=== PATIENT | female | born 1970 | race American Indian/Alaskan Native ===

== ENCOUNTER 2017-07-23 20:17 | Emergency (ER) | payer OTHER ==
[2017-07-23 20:39] VITALS: BP 154/88
[2017-07-23] MEDS ORDERED: REGLAN PO ONE (21:35)
[2017-07-23] MEDS ORDERED: BENADRYL PO ONE (21:35)
[2017-07-23] MEDS ORDERED: TORADOL IM ONE (21:35)
--- NOTE | 2017-07-23 21:43 | Emergency Department Report ---
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 dx with cervicle strain and closed head injuryh pt no complains of 5/10 heache with intermittent blurred vision bilat pt states "I can believe they still have me working 10-12 hours shifts, pt has not missed a work day since incident completes all work duties without difficulty, states I have seen the workman's comp doctor 3 times but still can' t get off work light duty. pt is currently taking ibuprofen prn pain but is afraid to take a lot of medication because she "just doesn't do that". pt is exacerbated by movement bending twisting repeated sitting and standing at work Onset/Timin -: week(s) Location: head Radiation: neck Severity scale (0 -10): 5 Quality: aching, sharp Consistency: intermittent Worsens with: movement, other (bending twisting head position) Associated Symptoms: headaches. denies: confusion, chest pain, cough, diaphoresis, fever/chills, loss of appetite, malaise, nausea/vomiting, rash, seizure, shortness of breath, syncope, weakness Treatments Prior to Arrival: none - Related Data Previous Rx's Medication Instructions Recorded Last Taken Type Cyclobenzaprine [Flexeril] 10 mg PO TID PRN #15 tablet 07/09/16 Unknown Rx Ibuprofen [Motrin] 800 mg PO Q8HR PRN #20 tablet 07/09/16 Unknown Rx Cyclobenzaprine [Flexeril] 10 mg PO TID PRN #30 tablet 07/23/17 Unknown Rx Naproxen 500 mg PO BID PRN #30 tablet 07/23/17 Unknown Rx Allergies Allergy/AdvReac Type Severity Reaction Status Date / Time No Known Allergies Allergy Verified 07/23/17 20:35 ED Review of Systems ROS: Stated complaint: HEAD INJURY Other details as noted in HPI Constitutional: denies: chills, fever Eyes: as per HPI, other (intermittent blurred vision with headache) ENT: denies: ear pain, throat pain Respiratory: denies: cough, shortness of breath, wheezing Cardiovascular: denies: chest pain, palpitations Endocrine: no symptoms reported Gastrointestinal: denies: abdominal pain, nausea, diarrhea Genitourinary: denies: urgency, dysuria, discharge Musculoskeletal: other (neck pain ). denies: back pain, joint swelling, arthralgia Skin: denies: rash, lesions Neurological: headache. denies: weakness, numbness, paresthesias, confusion, abnormal gait, vertigo Psychiatric: denies: anxiety, depression Hematological/Lymphatic: denies: easy bleeding, easy bruising ED Past Medical Hx - Past Medical History Hx Sickle Cell Disease: Yes (TRAIT ONLY) - Social History Smoking Status: Never Smoker Substance Use Type: None - Medications Home Medications: Home Medications Medication Instructions Recorded Confirmed Last Taken Type Cyclobenzaprine [Flexeril] 10 mg PO TID PRN #15 tablet 07/09/16 Unknown Rx Ibuprofen [Motrin] 800 mg PO Q8HR PRN #20 tablet 07/09/16 Unknown Rx Cyclobenzaprine [Flexeril] 10 mg PO TID PRN #30 tablet 07/23/17 Unknown Rx Naproxen 500 mg PO BID PRN #30 tablet 07/23/17 Unknown Rx ED Physical Exam - General Limitations: No Limitations General appearance: alert, in no apparent distress - Head Head exam: Present: atraumatic, normocephalic, normal inspection - Eye Eye exam: Present: normal appearance, PERRL, EOMI Pupils: Present: normal accommodation - ENT ENT exam: Present: normal exam, mucous membranes moist, TM's normal bilaterally , normal external ear exam - Expanded ENT Exam Expanded Ear exam: Present: normal external inspection, other (no blood no swelling no pain ) Mouth exam: Present: other (no blood no swelling ) Throat exam: Positive: normal inspection, other (no blood no exudate no swelling no lesion no stridor ) - Neck Neck exam: Present: normal inspection (no swelling no ecchymosis ), tenderness ( bilat lateral neck muscle pain to deep palpation no weakness no numbness no tingling ), full ROM. Absent: lymphadenopathy, thyromegaly - Respiratory Respiratory exam: Present: normal lung sounds bilaterally. Absent: respiratory distress, wheezes, rhonchi, stridor, chest wall tenderness - Cardiovascular Cardiovascular Exam: Present: regular rate, normal rhythm, normal heart sounds. Absent: systolic murmur, diastolic murmur, rubs, gallop - GI/Abdominal GI/Abdominal exam: Present: soft, normal bowel sounds - Rectal Rectal exam: Present: deferred - Extremities Exam Extremities exam: Present: normal inspection, full ROM, normal capillary refill. Absent: tenderness, pedal edema, joint swelling, calf tenderness - Back Exam Back exam: Present: normal inspection, full ROM. Absent: tenderness, CVA tenderness (R), CVA tenderness (L), muscle spasm, paraspinal tenderness, vertebral tenderness, rash noted - Neurological Exam Neurological exam: Present: alert, oriented X3, CN II-XII intact, normal gait, reflexes normal. Absent: motor sensory deficit - Expanded Neurological Exam Expanded Patient oriented to: Present: person, place, time Speech: Present: fluid speech Cranial nerves: EOM's Intact: Normal, Gag Reflex: Normal, Tongue Deviation: Normal, Nystagmus: Normal, Facial Sensation: Normal Cerebellar function: Finger to Nose: Normal, Heel to Ortega: Normal, Romberg: Normal Upper motor neuron: David Neglect: Normal, Pronator Drift: Normal, Babinski Sign : Normal, Sensory Extinction: Normal Sensory exam: Upper Extremity Light Touch: Normal, Upper Extremity Pin Prick: Normal, Upper Extremity Temperature: Normal, UE 2 Point Discrimination: Normal, Lower Extremity Light Touch: Normal, Lower Extremity Pin Prick: Normal, Lower Extremity Temperature: Normal, LE 2 Point Discrimination: Normal Motor strength exam: RUE: 5, LUE: 5, RLE: 5, LLE: 5 DTR: bicep (R): 2+, bicep (L): 2+, tricep (R): 2+, tricep (L): 2+, knee (R): 2+ , knee (L): 2+, ankle (R): 2+, ankle (L): 2+ Best Eye Response (Mckinney): (4) open spontaneously Best Motor Response (Mckinney): (6) obeys commands Best Verbal Response (Indira): (5) oriented Indira Total: 15 - Psychiatric Psychiatric exam: Present: normal affect, normal mood - Skin Skin exam: Present: warm, dry, intact, normal color. 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 pt is currently taking ibuprofen prn pain but is afraid to take a lot of medication because she "just doesn't do that". pt is exacerbated by movement bending twisting repeated sitting and standing at work : exam appears well nontoxic head is midline no lacerations no swelling no crepitus no stepoff, neck supple appear atraumatic ent: normal no swelling no blood no drainage eyes: perrla, eomi, conjunctivae clear bilat neck: no posterior vertebral point tenderness no swelling ecchymosis no swelling no rom intact chin to chest bilat shoulder and full neck extension with 2/10 pain to movement, pt denies dizziness no light headedness no n/v pt is ambulatory to baseline rhomberg negative, headache is no 2/10 after medication given in ed, plan: naproxen po bid, flexeril, moist heat for neck, follow up with [facility] doctor tomorrow as scheduled, pt verbalized agreement and understanding with discharge plan. Critical care attestation.: If time is entered above; I have spent that time in minutes in the direct care of this critically ill patient, excluding procedure time. ED Disposition Clinical Impression: Headache Qualifiers: Headache type: unspecified Headache chronicity pattern: unspecified pattern Intractability: not intractable Qualified Code(s): R51 - Headache Neck muscle strain Qualifiers: Encounter type: initial encounter Qualified Code(s): S16.1XXA - Strain of muscle, fascia and tendon at neck level, initial encounter Disposition: TO HOME OR SELFCARE Is pt being admited?: No Does the pt Need Aspirin: No Condition: Good Instructions: Cervical Spine Strain (ED) Additional Instructions: follow up with your workmans comp doctor tomorrow Prescriptions: Cyclobenzaprine [Flexeril] 10 mg PO TID PRN #30 tablet PRN Reason: Muscle Spasm Naproxen 500 mg PO BID PRN #30 tablet PRN Reason: Pain Referrals: PRIMARY CARE, [Primary Care Provider] - 3-5 Days Forms: Work/School Release Form(ED) Time of Disposition: 22:08
== END 2017-07-23 22:25 | disposition home or self-care (01) ==
LOC: ED 20:17
DX: S16.1XXA Strain of muscle, fascia and tendon at neck level, initial encounter (principal); R51 Headache; X58.XXXA Exposure to other specified factors, initial encounter; Y93.89 Activity, other specified; Y92.89 Other specified places as the place of occurrence of the external cause; Y99.8 Other external cause status
CPT/HCPCS: 96372; 99282; J1885

== ENCOUNTER 2020-01-01 17:40 | Emergency (ER) | payer OTHER ==
--- NOTE | 2020-01-01 18:46 | XRay Report ---
CHEST PA AND LATERAL VIEWS INDICATION: SOB, cough. COMPARISON: None. FINDINGS: Support devices: None. Heart: Within normal limits. Lungs/Pleura: Mild increased reticular opacities are noted bilaterally, greatest in the lower lungs. IMPRESSION: 1. Predominantly peribronchovascular reticular opacities in both lungs are nonspecific but could be s een in the setting of lower airways disease. Signer Name: Oli Dietrich MD Signed: 01/01/2020 6:41 PM Workstation Name: [id number]
[2020-01-01] MEDS ORDERED: SODIUM CHLORIDE 0.9% 1000 ML 1,000 ML IV ONE (19:52)
[2020-01-01] MEDS ORDERED: methylPREDNISolone Sod Succinate 125 MG/2 ML INJ IV ONE (19:53)
[2020-01-01] MEDS ORDERED: ACETAMINOPHEN 500 MG TAB PO ONE (19:54)
[2020-01-01 20:46] LABS: Basophils % (Auto) 0.7 % (0.0-1.8); Hematocrit 38.4 % (30.3-42.9); Hemoglobin 12.5 gm/dl (10.1-14.3); Lymphocytes # (Auto) 1.3 K/mm3 (1.2-5.4); Lymphocytes % (Auto) 30.4 % (13.4-35.0); Mean Corpuscular HGB Conc 33 % (30-34); Mean Corpuscular Volume 88 fl (79-97); Monocytes # (Auto) 0.5 K/mm3 (0.0-0.8); Monocytes % (Auto) 10.9 % (0.0-7.3); Platelet Count 166 K/mm3 (140-440); Red Blood Count 4.36 M/mm3 (3.65-5.03); Red Cell Distribution Width 13.3 % (13.2-15.2)
[2020-01-01 21:06] LABS: C-Reactive Protein 5.4 mg/dL (0.00-1.30)
[2020-01-01] MEDS ORDERED: AZITHROMYCIN 250 MG TAB PO ONE (21:26)
[2020-01-01] MEDS ORDERED: cefTRIAXone/NS 1 GM/50 ML 1 GM/50 ML BAG IV ONE (21:26)
[2020-01-01 22:00] LABS: Alanine Aminotransferase 58 units/L (7-56); Albumin 3.5 g/dL (3.9-5); BUN/Creatinine Ratio 11; Blood Urea Nitrogen 21 mg/dL (7-17); Calcium 8.8 mg/dL (8.4-10.2); Hemolysis Index 20
[2020-01-01] MEDS ORDERED: ACETAMINOPHEN 325 MG TAB ONE (22:19)
[2020-01-01] MEDS ORDERED: methylPREDNISolone Sod Succinate 125 MG/2 ML INJ ONE (22:20)
[2020-01-01] MEDS ORDERED: LIDOCAINE-MPF (1%) 10 MG/1 ML VIAL 5 ML ONE (22:20)
--- NOTE | 2020-01-02 03:33 | Emergency Department Report ---
- General Chief Complaint: Upper Respiratory Infection Stated Complaint: COUGH/FEVER/BODY ACHE Source: patient Mode of arrival: Ambulatory Limitations: No Limitations - History of Present Illness Initial Comments: Patient is a 49-year-old -[place] female with no past medical history and who does not smoke cigarettes or drink alcohol or use illegal drugs presents to the ED with complaint of acute onset persistent severe diffuse body aches and pains, nasal and sinus congestion, frontal sinus pressure and headache, persistent dry cough and subjective fever for the last 1 week. Patient states that her symptoms got worse in the last 2 days. Patient states that her has had similar symptoms. Patient denies any travel recently. Patient denies dizziness, syncope, chest pain, shortness of breath, nausea, vomiting, diarrhea, dysuria, urinary frequency and urgency, abdominal pain, sore throat, change in vision, palpitations or low back pain. Patient states that she has been taking [id number] medications with no relief. MD Complaint: fever, cough, rhinorrhea, nasal congestion, sinus pain, other -: Sudden, week(s) (1) Severity: severe Severity scale (0 -10): 7 Quality: sharp, aching Consistency: constant Improves With: nothing Worsens With: nothing Context: sick contacts Associated Symptoms: denies other symptoms, fever, chills, myalgias, headache, rhinorrhea, nasal congestion, cough. denies: sore throat, chest pain, shortness of breath, abdominal pain, nausea, vomiting, diarrhea, dysuria, rash, right sweats, weight loss Treatments Prior to Arrival: Acetaminophen - Related Data Previous Rx's Medication Instructions Recorded Last Taken Type Cyclobenzaprine [Flexeril] 10 mg PO TID PRN #15 tablet 07/09/16 Unknown Rx Ibuprofen [Motrin] 800 mg PO Q8HR PRN #20 tablet 07/09/16 Unknown Rx Cyclobenzaprine [Flexeril] 10 mg PO TID PRN #30 tablet 07/23/17 Unknown Rx Naproxen 500 mg PO BID PRN #30 tablet 07/23/17 Unknown Rx Acetaminophen [Tylenol] 1,000 mg PO Q6HR PRN #30 tablet 01/02/20 Unknown Rx Albuterol Sulfate [Proventil Hfa] 1 - 2 puff IH Q6H PRN #1 inh 01/02/20 Unknown Rx Azithromycin [Zithromax Z-ANDRES] 250 mg PO DAILY #6 tablet 01/02/20 Unknown Rx Benzonatate [Tessalon Perles] 100 mg PO Q8HR #30 capsule 01/02/20 Unknown Rx Allergies Allergy/AdvReac Type Severity Reaction Status Date / Time No Known Allergies Allergy Verified 07/23/17 20:35 ED Review of Systems ROS: Stated complaint: COUGH/FEVER/BODY ACHE Other details as noted in HPI Constitutional: see HPI, fever, malaise Eyes: denies: eye pain, eye discharge, vision change ENT: congestion. denies: ear pain, throat pain Respiratory: cough. denies: shortness of breath, wheezing Cardiovascular: denies: chest pain, palpitations, edema Endocrine: no symptoms reported Gastrointestinal: denies: abdominal pain, nausea, diarrhea Genitourinary: denies: urgency, dysuria, discharge Musculoskeletal: arthralgia, myalgia. denies: joint swelling Skin: denies: rash, lesions Neurological: denies: headache, weakness, paresthesias Psychiatric: denies: anxiety, depression Hematological/Lymphatic: denies: easy bleeding, easy bruising ED Past Medical Hx - Past Medical History Previous Medical History?: No (Body aches) Hx Sickle Cell Disease: Yes (TRAIT ONLY) - Surgical History Past Surgical History?: No - Social History Smoking Status: Never Smoker - Medications Home Medications: Home Medications Medication Instructions Recorded Confirmed Last Taken Type Cyclobenzaprine [Flexeril] 10 mg PO TID PRN #15 tablet 07/09/16 Unknown Rx Ibuprofen [Motrin] 800 mg PO Q8HR PRN #20 tablet 07/09/16 Unknown Rx Cyclobenzaprine [Flexeril] 10 mg PO TID PRN #30 tablet 07/23/17 Unknown Rx Naproxen 500 mg PO BID PRN #30 tablet 07/23/17 Unknown Rx Acetaminophen [Tylenol] 1,000 mg PO Q6HR PRN #30 tablet 01/02/20 Unknown Rx Albuterol Sulfate [Proventil Hfa] 1 - 2 puff IH Q6H PRN #1 inh 01/02/20 Unknown Rx Azithromycin [Zithromax Z-ANDRES] 250 mg PO DAILY #6 tablet 01/02/20 Unknown Rx Benzonatate [Tessalon Perles] 100 mg PO Q8HR #30 capsule 01/02/20 Unknown Rx ED Physical Exam - General Limitations: No Limitations General appearance: alert, in no apparent distress - Head Head exam: Present: atraumatic, normocephalic, normal inspection - Eye Eye exam: Present: normal appearance, PERRL, EOMI Pupils: Present: normal accommodation - ENT ENT exam: Present: normal orophraynx, mucous membranes moist, TM's normal bilaterally, normal external ear exam, other (Grossly congested nasal passages) - Neck Neck exam: Present: normal inspection, full ROM. Absent: tenderness, meningismus, lymphadenopathy, thyromegaly - Respiratory Respiratory exam: Present: normal lung sounds bilaterally. Absent: respiratory distress, wheezes, rales, chest wall tenderness, accessory muscle use, decreased breath sounds, prolonged expiratory - Cardiovascular Cardiovascular Exam: Present: normal rhythm, tachycardia, normal heart sounds. Absent: systolic murmur, diastolic murmur, rubs, gallop - GI/Abdominal GI/Abdominal exam: Present: soft, normal bowel sounds. Absent: tenderness, guarding, rebound, hyperactive bowel sounds - Extremities Exam Extremities exam: Present: normal inspection, full ROM, normal capillary refill - Back Exam Back exam: Present: normal inspection, full ROM. Absent: tenderness, CVA tenderness (R), CVA tenderness (L), muscle spasm, paraspinal tenderness, vertebral tenderness - Neurological Exam Neurological exam: Present: alert, oriented X3, CN II-XII intact, normal gait, reflexes normal - Psychiatric Psychiatric exam: Present: normal affect, normal mood - Skin Skin exam: Present: warm, dry, intact, normal color. Absent: rash ED Course Vital Signs 01/01/20 01/01/20 17:53 22:47 Temperature 98.4 F Pulse Rate 115 H Respiratory 16 18 Rate Blood Pressure 107/71 [Right] O2 Sat by Pulse 98 Oximetry ED Medical Decision Making - Lab Data Result diagrams: 01/01/20 20:15 01/01/20 20:15 - Radiology Data Radiology results: report reviewed, image reviewed Findings [facility] [address] [place] [address] XRay Report Signed Patient: ZAK TUBBS MR#: [id number] : 1970 Acct:[id number] Age/Sex: 49 / F ADM Date: 01/01/20 Loc: ED Attending Dr: Ordering Physician: ED DOCMD Date of Service: 01/01/20 Procedure(s): XR chest routine 2V Accession Number(s): [id number] cc: NIKI JORGE MD Fluoro Time In Minutes: CHEST PA AND LATERAL VIEWS INDICATION: SOB, cough. COMPARISON: None. FINDINGS: Support devices: None. Heart: Within normal limits. Lungs/Pleura: Mild increased reticular opacities are noted bilaterally, greatest in the lower lungs. IMPRESSION: 1. Predominantly peribronchovascular reticular opacities in both lungs are nonspecific but could be seen in the setting of lower airways disease. Signer Name: Oli Dietrich MD Signed: 01/01/2020 6:41 PM Workstation Name: [id number] Transcribed By: ROSALIND Dictated By: Oli Dietrich MD Electronically Authenticated By: Oli Dietrich MD Signed Date/Time: 01/01/201840 DD/ 39 TD/TT: - Medical Decision Making This is a 49-year-old female who presented to the ED with complaint of acute onset persistent nasal and sinus congestion, frontal sinus pressure, persistent dry cough with wheezing, diffuse body aches and pains and subjective fever for 1 week. In the ED, patient is alert and oriented x3 and is not in distress, afebrile but tachycardic in triage. Patient was treated for pain in the ED and lab test results were reviewed and are consistent with a viral syndrome suspected to be Covid-19 viral pandemic strain. Chest x-ray showed predominantly peribronchovascular reticular opacities in both lungs are nonspecific but could be seen in the setting of lower airways disease. Therefore based on the patient's history, physical exam findings, lab test results and chest x-ray report, patient was treated in the ED empirically for community-acquired pneumonia with Rocephin 1 g IV x1 and azithromycin 500 mg p.o. x1. Patient also received bronchodilator treatment in the ED. On reevaluation, patient felt better and patient is hemodynamically stable and was discharged home on antibiotics, and appropriate paperwork was filled for Covid- 19 viral pandemic strain for appropriate action by the CDC. Patient was discharged home on medications and advised to return to the emergency department immediately if her symptoms get worse. Patient was otherwise advised to maintain a strict 14-day self quarantine at home as a requirement for suspected Covid-19 viral pandemic. - Differential Diagnosis Pneumonia; bronchitis; Flu; Covid-19 virus; Sinusitis Critical care attestation.: If time is entered above; I have spent that time in minutes in the direct care of this critically ill patient, excluding procedure time. ED Disposition Clinical Impression: Acute upper respiratory infection Community acquired pneumonia Qualifiers: Laterality: left Lung location: lower lobe of lung Qualified Code(s): J18.9 - Pneumonia, unspecified organism Acute frontal sinusitis Qualifiers: Recurrence: non-recurrent Qualified Code(s): J01.10 - Acute frontal sinusitis, unspecified Disposition: DC- TO HOME OR SELFCARE Is pt being admited?: No Does the pt Need Aspirin: No Condition: Stable Instructions: Upper Respiratory Infection (ED), Acute Bronchitis (ED), Acute Bacterial Rhinosinusitis (ED), Community-acquired Pneumonia (ED) Additional Instructions: All lab test results are unremarkable but consistent with a viral syndrome, Covid-19 viral pandemic syndrome cannot be ruled out until tested. Chest x-ray shows bilateral lower lobe infiltrates consistent with pneumonia or a viral syndrome. Therefore take medications with food as advised, drink plenty fluids and maintain a strict 14 days self quarantine at home as part of requirement for Covid-19 viral pandemic outbreak. Return to the emergency department immediately if your symptoms get worse. Prescriptions: Acetaminophen [Tylenol] 1,000 mg PO Q6HR PRN #30 tablet PRN Reason: Pain , Severe (7-10) Albuterol Sulfate [Proventil Hfa] 1 - 2 puff IH Q6H PRN #1 inh PRN Reason: Shortness Of Breath Benzonatate [Tessalon Perles] 100 mg PO Q8HR #30 capsule Azithromycin [Zithromax Z-ANDRES] 250 mg PO DAILY #6 tablet Referrals: ABBY MAY MD [Staff Physician] - 3-5 Days Forms: Work/School Release Form(ED) Time of Disposition: 03:42 Print Language: LITHUANIAN
[2020-01-02 04:56] VITALS: BP 115/73
== END 2020-01-02 04:05 | disposition home or self-care (01) ==
LOC: ED 17:40
DX: J06.9 Acute upper respiratory infection, unspecified (principal); J01.10 Acute frontal sinusitis, unspecified; J18.9 Pneumonia, unspecified organism; Z79.899 Other long term (current) drug therapy
CPT/HCPCS: 36415; 71046; 80053; 82728; 83615; 84145; 84484; 85025; 85379; 86140; 96365; 96375; 99284; J0696; J2930; J7030

== ENCOUNTER 2022-06-30 12:08 | Emergency (ER) | payer SELFPAY ==
[2022-06-30] MEDS ORDERED: ASPIRIN 325 MG TAB PO ONE (12:21)
[2022-06-30 12:24] VITALS: BP 177/86
--- NOTE | 2022-06-30 13:14 | XRay Report ---
CHEST 2 VIEWS INDICATION / CLINICAL INFORMATION: Chest Pain. COMPARISON: 01/01/2020 FINDINGS: SUPPORT DEVICES: None. HEART / MEDIASTINUM: No significant abnormality. LUNGS / PLEURA: No significant pulmonary or pleural abnormality. No pneumothorax. ADDITIONAL FINDINGS: No significant additional findings. IMPRESSION: 1. No acute findings. Signer Name: Carroll Mendes Jr, MD Signed: 06/30/2022 1:10 PM Workstation Name: [id number]
--- NOTE | 2022-06-30 13:46 | Event Note ---
ED Screening Note Date of service: 06/30/22 Time: 12:45 ED Screening Note: This initial assessment/diagnostic orders/clinical plan/treatment(s) is/are subject to change based on patients health status, clinical progression and re- assessment by fellow clinical providers in the ED. Further treatment and workup at subsequent clinical providers discretion. Patient/guardian urged not to elope from the ED as their condition may be serious if not clinically assessed and managed. DID NOT SEE PATIENT Initial orders include: My Active Orders 06/30/22 12:22 EKG (12 lead) Stat Complete Blood Count Auto Diff Stat Comprehensive Metabolic Panel Stat Lipase Stat Troponin T Stat 06/30/22 12:23 Tech to do EKG .once
[2022-06-30 14:23] LABS: Basophils % (Auto) 0.7 % (0.0-1.8); Eosinophils # (Auto) 0.2 K/mm3 (0.0-0.4); Eosinophils % (Auto) 3.9 % (0.0-4.3); Hematocrit 36.5 % (30.3-42.9); Hemoglobin 11.6 gm/dl (10.1-14.3); Lymphocytes # (Auto) 2.1 K/mm3 (1.2-5.4); Lymphocytes % (Auto) 35.7 % (13.4-35.0); Mean Corpuscular HGB Conc 32 % (30-34); Mean Corpuscular Volume 90 fl (79-97); Monocytes # (Auto) 0.7 K/mm3 (0.0-0.8); Monocytes % (Auto) 12.1 % (0.0-7.3); Platelet Count 179 K/mm3 (140-440); Red Blood Count 4.08 M/mm3 (3.65-5.03)
[2022-06-30 14:44] LABS: Alanine Aminotransferase 38 units/L (7-56); Calcium 9.9 mg/dL (8.4-10.2); Hemolysis Index 6
[2022-06-30 15:00] LABS: BUN/Creatinine Ratio 15; Blood Urea Nitrogen 17 mg/dL (7-17)
--- NOTE | 2022-07-01 11:50 | Electrocardiograph Report ---
[facility] Test Date: 2022-06-30 Test Time: 12:23:09 Pat Name: ZAK TUBBS Department: Room: Gender: F Communications Writer: AF : 1970 Requested By: HAYLEY SERRANO Order Number: [id number] Reading MD: Kaleb Cohen Measurements Intervals [place] Rate: 84 P: 61 DE: 175 QRS: -8 QRSD: 77 T: 38 QT: 371 QTc: 438 Interpretive Statements Sinus rhythm Probable left atrial enlargement Low voltage, precordial leads No previous ECG available for comparison Electronically Signed On 07-01-2022 8:50:29 PDT by Kaleb Cohen
== END 2022-06-30 22:55 | disposition left against medical advice (07) ==
LOC: ED 12:08
DX: R07.9 Chest pain, unspecified (principal); Z53.21 Procedure and treatment not carried out due to patient leaving prior to being seen by health care provider
CPT/HCPCS: 36415; 71046; 80053; 83690; 84484; 85025; 93005